=== PATIENT | female | born 1975 ===

== ENCOUNTER 2018-02-01 19:39 | Inpatient (IN) | payer OTHER, SELFPAY ==
--- NOTE | 2018-02-01 20:38 | RAD ---
ONE VIEW CHEST: 02/01/18 HISTORY: Syncope. COMPARISON: None. FINDINGS: Normal cardiac silhouette. The pulmonary vessels and hilum are normal. No consolidation or mass. No p neumothorax or osseous abnormality. IMPRESSION: No acute cardiopulmonary process. POS: [facility]
[2018-02-01 21:11] LABS: #Eosinphils 0.1 thou/uL (0.0-0.7); #Lymphocytes 1.2 thou/uL (1.20-3.40); #Monocytes 0.8 thou/uL (0.11-0.59); #Neutrophils 6.4 thou/uL (1.40-6.50); %Basophils 0.1 % (0.0-1.0); %Eosinophils 1.4 % (0.0-10.0); %Monocytes 9.5 % (0.0-10.0); %Neutrophils 75.1 % (42.0-75.0); Hemoglobin 10.1 g/dL (12.0-16.0); Mean Corpuscular HGB CONC 33.1 g/dL (32.0-36.0); Mean Corpuscular Hemoglobin 29.2 pg (27.0-31.0); Mean Corpuscular Volume 88.2 fL (78.0-98.0); Mean Platelet Volume 8.5 fL (7.4-10.4); Platelet Count 164 thou/uL (130-400); RBC Distribution Width 19.9 % (11.5-14.5); Red Blood Cell (RBC) Count 3.47 mill/uL (4.20-5.40); White Blood Cell (WBC) Count 8.5 thou/uL (4.8-10.8)
[2018-02-01 21:12] LABS: ALT (SGPT) 28 U/L (8-55); AST (SGOT) 30 U/L (5-34); Albumin 2.7 g/dL (3.5-5.0); Alkaline Phosphatase 79 U/L (40-150); Anion Gap 15 mmol/L (10-20); BUN (Urea Nitrogen) 11 mg/dL (7.0-18.7); Bilirubin, Total 1.2 mg/dL (0.2-1.2); CK (CPK) 44 U/L (29-168); Calc. Creatinine Clearance 0 mL/min (70-130); Calcium 7.8 mg/dL (7.8-10.44); Carbon Dioxide 19 mmol/L (22-29); Chloride 109 mmol/L (98-107); Estimated GFR-MDRD 79; Globulin 2.1 g/dL (2.4-3.5); Glucose 145 mg/dL (70-105); Potassium 3.5 mmol/L (3.5-5.1); Protein, Total 4.8 g/dL (6.0-8.3); Sodium 139 mmol/L (136-145)
[2018-02-01 21:16] LABS: CKMB 1.9 ng/mL (0-6.6); Troponin I 0.019 ng/mL (< 0.028)
[2018-02-01] MEDS ORDERED: Ondansetron ODT 8 MG TAB ONE (21:19)
[2018-02-01] MEDS ORDERED: Hydrocortisone Sod Succ/PF 100 mg/2 ml Vial ONE (23:30)
[2018-02-01] MEDS ORDERED: Norepinephrine 8 MG/0.9% NS 250 ML ONE (23:59)
[2018-02-02 00:30] LABS: INR-International Normal Ratio 1.7; PTT 30.5 SEC (22.9-36.1); Prothrombin Time 20.3 SEC (12.0-14.7)
[2018-02-02] MEDS ORDERED: Piperacillin/Tazobactam 4.5 GM VIAL ONE (00:52)
[2018-02-02] MEDS ORDERED: Albumin 25% 25 GM/100 ML BOT IVPB ONE (01:15)
[2018-02-02] MEDS ORDERED: Sodium Chloride 0.9% 1,000 ML IV SCH (03:30)
[2018-02-02] MEDS ORDERED: Dextrose 5 % And 0.9 % NaCl 1,000 ML IV SCH (04:45)
[2018-02-02 05:26] VITALS: BMI 24.3
[2018-02-02] MEDS ORDERED: Norepinephrine 8 MG/250 ML BAG IVPB PRN (05:35)
[2018-02-02] MEDS: Dextrose 5 % And 0.9 % NaCl 1,000 ML IV SCH ×2 (05:43→08:49)
[2018-02-02] MEDS ORDERED: MEROPENEM 1 GM/50 ML 1 GM in Premix Bag 1 BAG IVPB SCH (06:00)
[2018-02-02] MEDS ORDERED: Albumin 25% 25 GM/100 ML BOT IVPB SCH ×2 (06:00→09:07)
[2018-02-02] MEDS ORDERED: CCU Electrolyte Replacement 1 EACH IVPB ONE (06:24)
[2018-02-02] MEDS ORDERED: Lacri-Lube Opth Oint 3.5 GM TUBE EA EYE PRN (06:24)
[2018-02-02] MEDS ORDERED: Milk Of Magnesia 30 ML UDCUP PO PRN (06:25)
[2018-02-02] MEDS ORDERED: Mag-Al 1200 mg/1200 mg/30 ML UDCUP PO PRN (06:25)
[2018-02-02] MEDS ORDERED: Ondansetron HCl/PF 4 MG/2 ML Vial IVP PRN (06:25)
[2018-02-02] MEDS ORDERED: Calcium Carbonate 500 MG ChewTAB PO PRN (06:25)
[2018-02-02] MEDS ORDERED: Ondansetron ODT 4 MG TAB PO PRN (06:25)
[2018-02-02] MEDS ORDERED: Meropenem 1 GM in Sodium Chloride 0.9% 100 ML IVPB SCH (06:30)
[2018-02-02] MEDS ORDERED: Magnesium 2 GM/NS 0.9% 100 ML 2 GM in Premix Bag 1 BAG IVPB PRN (06:34)
[2018-02-02] MEDS ORDERED: Potassium Phosphate 9 MMOL in Sodium Chloride 0.9% 100 ML IVPB PRN (06:34)
[2018-02-02] MEDS ORDERED: Potassium Phosphate 12 MMOL in Sodium Chloride 0.9% 250 ML 250 ML IV PRN (06:34)
[2018-02-02] MEDS ORDERED: Magnesium Oxide 400 MG TAB PO PRN ×2 (06:34)
[2018-02-02] MEDS ORDERED: Potassium Chloride 40 MEQ in Sodium Chloride 0.9% 250 ML 250 ML IVPB PRN (06:34)
[2018-02-02] MEDS ORDERED: Potassium Chloride 20 MEQ TAB PO PRN (06:34)
[2018-02-02] MEDS ORDERED: Potassium Chloride 40 MEQ in Premix Bag 1 BAG IVPB PRN (06:34)
[2018-02-02] MEDS ORDERED: Potassium Phosphate 15 MMOL in Sodium Chloride 0.9% 250 ML 250 ML IV PRN (06:34)
[2018-02-02 08:40] VITALS: TEMP 98.5
[2018-02-02] MEDS ORDERED: Pantoprazole 40 MG VIAL IVP SCH (09:00)
--- NOTE | 2018-02-02 09:01 | HP ---
DATE OF ADMISSION: 02/02/2018 PRIMARY CARE PHYSICIAN: Dr. Gonsalo mills. 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 CHIEF COMPLAINT: Syncopal episode. 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 She was sitting in the car at that time. She was short of breath and diaphoretic. No fall injury, chest pain, palpitations or focal neurolo gic deficit reported. She denies any hematemesis, melena or hematochezia. She has history of esopha geal varices requiring banding. She gets surveillance EGD twice a year. She had one episode of vomi ting and several episodes of nonbloody diarrhea earlier today. In the emergency room, her initial vital signs showed temperature 98, respiration 18, pulse rate of 7 5 with blood pressure of 65/40. Her O2 saturation was 100% on room air. EKG showed sinus rhythm. T he patient declined a central line. She was started on Levophed. Her H&H in the emergency room was 10.1/30.6. Due to elevated D-dimer, a CT angiogram of the chest was ordered around midnight. PAST MEDICAL HISTORY: 1. Autoimmune cirrhosis. 2. Esophageal varices status post banding. PAST SURGICAL HISTORY: 1. . 2. EGD with esophageal banding. ALLERGIES: No known drug allergies. CURRENT HOME MEDICATIONS: Aldactone, Protonix, and Ursodiol. The exact dosages to be confirmed. FAMILY HISTORY: Negative for heart disease. SOCIAL HISTORY: Patient drinks socially. No smoking or drug use. REVIEW OF SYSTEMS: The following complete review of systems was negative, unless otherwise mentioned in the HPI or below: Constitutional: Weight loss or gain, ability to conduct usual activities. Skin: Rash, itching. Eyes: Double vision, pain. ENT/Mouth: Nose bleeding, neck stiffness, pain, tenderness. Cardiovascular: Palpitations, dyspnea on exertion, orthopnea. Respiratory: Shortness of breath, wheezing, cough, hemoptysis, fever or night sweats. Gastrointestinal: Poor appetite, abdominal pain, heartburn, nausea, vomiting, constipation, or diarr hea. Genitourinary: Urgency, frequency, dysuria, nocturia. Musculoskeletal: Pain, swelling. Neurologic/Psychiatric: Anxiety, depression. Allergy/Immunologic: Skin rash, bleeding tendency. PHYSICAL EXAMINATION: VITAL SIGNS: As discussed above. GENERAL: A 42-year-old female, pale appearing, no apparent distress. Denies significant abdominal d iscomfort. HEENT: Head is atraumatic, normocephalic. Sclerae are anicteric. Dry mucous membranes. No oral le jakub. NECK: Supple, no JVD appreciated. No carotid bruit. LUNGS: Showed diminished air entry at bilateral bases. No wheezing, rales or rhonchi. Lungs were s ymmetrical. HEART: S1, S2 present. Regular rate and rhythm. No rubs or gallops appreciated. ABDOMEN: Diffuse tender mainly in the left upper and left lower quadrant. No significant rebound or guarding appreciated. Hypoactive bowel sounds present. EXTREMITIES: Trace edema in bilateral lower extremities. No calf tenderness. SKIN: Warm and dry. LYMPH NODES: No palpable lymph nodes in the neck. PERIPHERAL VASCULAR: Radial pulses palpable bilaterally. MUSCULOSKELETAL: No joint swelling or tenderness. LABORATORY DATA AND X-RAY FINDINGS: CBC showed WBC 8.5 with hemoglobin 10.1, hematocrit 30.6, platel et 164. INR 1.7, PT 20.3. D-dimer 7.71. Chemistries showed sodium 139, potassium 3.5, chloride 109 , bicarbonate 19, BUN 11, creatinine 0.79. Cortisol level was drawn after the stress dose steroid. Troponin was negative. Stool for occult blood was negative. Chest x-ray by my review as discussed jay land. I received a call from [facility] around 3:00 a.m. that the patient probably has intrap eritoneal blood. A CT of the abdomen with IV contrast was recommended by the radiologist. This has been ordered and pending at this time. IMPRESSION: 1. Syncope secondary to hypotension. 2. Hypovolemic shock, on Levophed. Please note that patient declined central line. She understands the risks not limited to limb ischemia while on pressors. 3. Suspected intraperitoneal bleed. CT abdomen pending at this time. 4. Autoimmune cirrhosis. 5. Esophageal varices status post banding in the past. 6. Dehydration. 7. Moderate protein calorie malnutrition. 8. Elevated D-dimer. Pulmonary embolism has been ruled out. 9. Coagulopathy, probably secondary to liver disease. PLAN: The patient will be monitored in the Intensive Care Unit setting. We will continue aggressive IV hydration. We will continue albumin. We will continue low dose Levophed through peripheral IV s joanne the patient is refusing central line. We will try to get a PICC line in a.m. Critical Care con sulzaira. Empiric antibiotics. A repeat hemoglobin was ordered after the CT chest; however, the patient declined. Plan of care was discussed with the patient and the in detail. They stated under standing. Condition of the patient critical. Please note that patient has been refusing blood draws as well a central line. She understands the risk not limited to life-threatening complications incl uding . I emphasized the importance of central line and blood draw; however, the patient is sti ll adamant and is refusing blood draws.
--- NOTE | 2018-02-02 09:01 | HP ---
HISTORY OF PRESENT ILLNESS: Ms. Tomeka Adams is a 42-year-old female with autoimmune hepatitis, fo llowed by Dr. Branham in [place], , who has a long history of varices, portal hypertension. She has a history of ascites, coagulopathy. She undergoes twice yearly endoscopies with variceal b anding. Eleven years ago, she had a syncopal episode with massive blood loss requiring variceal band ing. Patient reports because of a syncopal episode, she was seen in the emergency room. At midnight , she had a CT angio chest and a chest x-ray that was unremarkable. During the CT angio chest, there was fluid in abdominal cavity. She underwent abdominal pelvic CAT scan revealing free intraabdomina l fluid suggested perisplenic blood. This is probably blood mixed with ascites. The patient refuses central line. She had hemoglobin in the emergency room at 8:47 is currently 10.1. She was placed i n ICU and placed on Levophed. She has refused a central line. She has a right antecubital IV. I wa s called at 6:00 this morning by Hospitalist noting the CAT scan of the abdomen and pelvis reading of intra-abdominal fluid, possible blood. Patient's blood pressure currently is 110/70 on Levophed, IV . Subsequent hemoglobin has not been checked. Platelet count is 164,000. PT 20, INR 1.7. Basic me tabolic profile and liver function tests are normal. ALLERGIES: None. TOBACCO: None. ALCOHOL: Infrequently. MEDICATIONS: Diuretic at home, not listed on her MAR. PAST SURGICAL HISTORY: . Twice yearly endoscopies with variceal banding. The patient was hospitalized 11 years ago when she had a syncopal episode with massive blood loss requiring variceal banding. She has not required paracentesis. The patient reports having a bad experience with a ara roenterologist locally and therefore followed by gastrologist in [place]. REVIEW OF SYSTEMS: Noncontributory. SOCIAL HISTORY: Patient works in the computer. PHYSICAL EXAMINATION: VITAL SIGNS: Blood pressure 111/70. LUNGS: Clear to auscultation. CARDIAC: Regular rate and rhythm without murmur or gallop. ABDOMEN: Slightly distended, diffusely tender without peritoneal signs. LABORATORY DATA: As noted above. ASSESSMENT AND PLAN: Autoimmune cirrhosis. She probably did experience a pneumoperitoneum mixed wit h a baseline ascites. Surgical intervention is not warranted at this point. During this encounter, the patient's is at the bedside continuously interrupting and asking questions. He is insist ing that I call her doctor in [place]. I have made an effort to do so and the answering service now has my number and I am awaiting them to call back. Currently, there is no perforated viscus evident and there may be spontaneous intra-abdominal bleeding. We would advise Gastroenterology consult. I have advised a central line, but the patient and the have refused. At this point, we will fo llow her clinically, follow her hemoglobins.
--- NOTE | 2018-02-02 09:48 | CT ---
PRELIMINARY REPORT/[facility]/EMERGENTY AFTER-HOURS PROCEDURE Addendum created by Quang Alcocer MD on 02/02/2018 3:46 AM Central Time ([place] & [place]) THIS REPORT CONT AINS FINDINGS THAT MAY BE CRITICAL TO PATIENT CARE. The findings were verbally communicated via telep librado conference with Dr. Ray at 3:44 AM CDT on 02/02/2018. The findings were acknowledged and unders tood. Initial Report created on 02/02/2018 3:29 AM Central Time ([place] & [place]) CT Angiography Chest With Intravenous Contrast CLINICAL HISTORY: 42 years old, female; Signs and symptoms; Dyspnea; Patient HX: Er 1; Elevated d-dimer; F44 reports to ed via ems C/O dehydration. Ems reports patient was found diaphoretic and cool. Pt family reports pa lavonne went unconscious in the car. Pt reports wifes lips were pale. Pt is currently undergoin g abx treatment for pneumonia. Pt HX of anemia and is receiving transfusion in [address] ill has a cough. Pt reports recent onset of nausea TECHNIQUE: Axial computed tomographic angiography images of the chest with intravenous contrast using pulmonary embolism protocol. MIP reconstructed images were created and reviewed. Coronal reformatted images were created and reviewed. COMPARISON: No relevant prior studies available. FINDINGS: Pulmonary arteries: Some left basilar motion. No pulmonary embolus identified. Aorta: No acute findings. No thoracic aortic aneurysm. Lungs: Minimal dependent atelectasis. Minimal right lower lobe bronchiolar mucous plugging. 4 mm grou ndglass density in the right apex. No mass or consolidation. Pleural space: No significant effusion. No pneumothorax. Heart: Small anterior pericardial effusion. Bones/joints: No acute fracture. No dislocation. Soft tissues: Unremarkable. Lymph nodes: Unremarkable. No enlarged lymph nodes. Upper abdomen: Evaluation limited by early phase enhancement. Distended gallbladder. Nodular liver ma rgins. Perisplenic collaterals. Spleen appears enlarged. Moderate of intermediate density fluid in th e upper abdomen (around 30 HU). Hyperdense fluid along the lateral splenic margin. Poorly defined pancreas and with ill-defined surrounding fluid and 6 cm collection of intermediate de nsity fluid around the neck, possibly above it although the pancreas is incompletely visualized IMPRESSION: 1. No evidence of pulmonary embolus. 2. Moderate amount of intermediate density fluid in the upper abdomen suggestive of blood products wi th hyperdensity around the spleen suggesting splenic injury as a source. Additionally, the pancreas i s ill-defined and pancreatic injury or other abnormality cannot be excluded. 3. Findings suggestive of chronic liver disease. Thank you for allowing us to participate in the care of your patient. Dictated and Authenticated by: Quang Alcocer MD 02/02/2018 3:29 AM Central Time ([place] & [place]) FINAL REPORT EMERGENT AFTER HOURS CT ANGIOGRAM OF THORAX WITH IV CONTRAST AND 3D RECONSTRUCTIONS: DATE: 02/02/18. HISTORY: The patient was found by EMS to be diaphoretic and cool. The patient's family reports the patient be came unconscious in car. The patient is undergoing treatment for pneumonia currently. IMPRESSION: 1. No CT evidence of a pulmonary embolus. 2. Thoracic aorta is normal in caliber without evidence of an aortic dissection. 3. Approximately 5 mm nodular density within the right lung apex. 4. Dependent atelectasis. 5. Small pericardial effusion. 6. Nodular contour of the liver suggesting cirrhosis. 7. Intraperitoneal free fluid in the visualized upper abdomen. 8. Increased density fluid adjacent to the visualized upper spleen as well as pancreas. Findings co uld be related to blood products. However, the parenchymal organs are not well evaluated on this art erial phase of imaging exam. 9. Enlargement of the spleen which is incompletely imaged on this exam. 10. Gallbladder wall edema. 11. Please see CT abdomen and pelvis for further details dictated on a separate report. 12. Findings are in agreement with the preliminary report by [facility]. POS: [facility]
--- NOTE | 2018-02-02 09:50 | CT ---
PRELIMINARY REPORT/[facility]/EMERGENTY AFTER-HOURS PROCEDURE Addendum created by Quang Alcocer MD on 02/02/2018 5:59 AM Central Time ([place] & [place]) There are also s everal splenic artery aneurysms distally measuring up to 3.5 cm (coronal 87-81). No contrast extravas ation identified in the area. THIS REPORT CONTAINS FINDINGS THAT MAY BE CRITICAL TO PATIENT CARE. The findings were verbally commun icated via telephone conference with Murali Ray at 5:52 AM CDT on 02/02/2018. The findings were ackn owledged and understood. Initial Report created on 02/02/2018 5:46 AM Central Time ([place] & [place]) CT Abdomen and Pelvis With Intravenous Contrast CLINICAL HISTORY: 42 years old, female; Abnormal findings; Abnormal radiologic finding of the abdomen; Radiologic exam and body structure: Abnormal upper abdomen seen on cta chest; Patient HX: Suspected intra abdominal b leeding around spleen TECHNIQUE: Axial computed tomography images of the abdomen and pelvis with intravenous contrast. Coronal reformatted images were created and reviewed. COMPARISON: No relevant prior studies available. FINDINGS: Lung bases: No acute findings. ABDOMEN: Liver: Cirrhotic liver morphology. Otherwise unremarkable. Gallbladder and bile ducts: Distended gallbladder with nonspecific edematous appearing wall. Pancreas: Unremarkable other than being partially surrounded by hematoma more prominent and heterogen eous anteriorly which appears to exert some mass effect. Spleen: Mildly enlarged. Perisplenic portosystemic collaterals. No obvious focal defect identified. Adrenals: Normal. Kidneys and ureters: Normal. Stomach and bowel: Unremarkable. No obstruction. PELVIS: Appendix: No findings to suggest acute appendicitis. Bladder: Dense excreted contrast in the urinary bladder. Reproductive: Neither ovary delineated from the pelvic blood products. ABDOMEN and PELVIS: Intraperitoneal space: Large amount of dense fluid within the abdomen consistent with blood with smal l areas of layering hyperdensity, hyperdense clot along the lateral margin the spleen and with larger more dense clot along the left paracolic gutter and in the pelvis anteriorly and on the left. No con trast extravasation identified. No free air. Bones/joints: Unremarkable. No acute fracture. Soft tissues: Unremarkable. Vasculature: See above. Lymph nodes: Unremarkable. No enlarged lymph nodes. IMPRESSION: 1. Large amount of hemoperitoneum without definite source. There is some hyperdense clot around the s pleen and along the left paracolic gutter without obvious splenic defect. There is also hyperdense cl ot in the pelvis anteriorly and below the left adnexa. The left ovary is not delineated, although findings would be unusual for a ruptured cyst 2. Nonocclusive thrombus in the portal confluence. Thank you for allowing us to participate in the care of your patient. Dictated and Authenticated by: Quang Alcocer MD 02/02/2018 5:46 AM Central Time ([place] & [place]) FINAL REPORT EMERGENT AFTER HOURS CT OF THE ABDOMEN AND PELVIS WITH IV CONTRAST: IMPRESSION: Agree with the preliminary interpretation given by [facility]. A large amount of hemoperitoneum, the etiolo gy of which is not definitely certain on the basis of this study. Changes of cirrhosis and portal hy pertension are noted with splenomegaly and prominent splenic varices. Evaluation of the splenic iain ry is somewhat limited due to the tortuosity of the splenic artery and the splenic varices present. Evidence for multiple splenic artery aneurysms which are primarily saccular. 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 The splenic artery is initially tortuou s first coursing right of midline and then left of midline. Probable splenic artery aneurysm distall y near the splenic hilum measures up to 3.5 cm. Correlation with dedicated CT angiogram or conventio nal angiogram is recommended. Vascular surgical consultation is recommended. No definite active ext ravasation is identified. Findings communicated to the patient's nurse 8:45 am 02/02/2018.
--- NOTE | 2018-02-02 10:28 | CON ---
DATE OF CONSULTATION: 02/02/2018 HISTORY: She is a 42-year-old female from [place]. is at the bedside. She presented last night with a syncopal episode. Her states that she sees Dr. Chang. She s ees a Dr. Branham who appears to be a gastroenteritis out of [place]. Twelve days ago she was diagnose d to have autoimmune cirrhosis. She had a GI bleed at that time, underwent endoscopy. According to the , she goes from time to time for routine endoscopy to control the bleeding. She has been stable for all these years. She was in her car yesterday when she had a blackout spell. She was pale when she arrived. A CAT scan of the abdomen on an emergency basis showed a large amount of hemoperitoneum without any definite source. There was a nonocclusive thrombus in the portal conf luence. Surgery was consulted; however, the patient wants to be life flighted to [place], which is b [facility] arranged. She is presently on Levophed with a blood pressure of 119/57, pulse 97, sats 100%, re spiration 20. Nonsmoker. Occasional drinker. states that about several weeks ago, a diagnosis of bronchit is and pneumonia was made by her primary care physician and she was started on Levaquin. PAST MEDICAL HISTORY: 1. Recent pneumonia, treated with Levaquin. 2. History of autoimmune cirrhosis, end-stage with previous variceal bleed. 3. Recent syncopal episode secondary to retroperitoneal hemorrhage. PAST SURGICAL HISTORY: . CHRONIC MEDICATION FROM HOME: Unknown at this time, but apparently she is taking spironolactone 50 a day, Ursodiol 500 a day, Protonix 40 a day. ALLERGIES: None. REVIEW OF SYSTEMS: Unremarkable. PHYSICAL EXAMINATION: VITAL SIGNS: Once again blood pressure 190/57, sats 100% on supplemental oxygen, respirations 24. GENERAL: She has pain, but no acute distress. CHEST: Reveals no crackles or wheezing. CARDIAC: Normal S1-S2. No gallops. ABDOMEN: Distended, soft. LABORATORY AND X-RAY FINDINGS: INR is 1.7. D-dimer 7.7, glucose 118. Serum protein 4.8, albumin is 2.7, H&H 10 and 30, platelet count is 164. White count 8.5. Her initial chest x-ray was otherwise unremarkable. CT chest, I do not see any pneumonia or any evid ence of obvious blood clots. IMPRESSION: 1. Massive retroperitoneal bleed, etiology unclear. 2. Hypertension on Levophed. Initiate albumin 3. Autoimmune cirrhosis. PLAN: I agree with Protonix. I agree with empiric antibiotics. We will transfer to [facility] in blood pressure systolic at least 100. Additional albumin was given. Forty-five minute critical care time.
--- NOTE | 2018-02-02 12:42 | DIS ---
DATE OF ADMISSION: 02/02/2018 DATE OF DISCHARGE: 02/02/2018 PRIMARY CARE PHYSICIAN: Dr. Gonsalo Chang. DISCHARGE DIAGNOSES: 1. Hemorrhagic shock. 2. Intracranial hemorrhage. 3. Coagulopathy secondary to cirrhosis. 4. Cirrhosis secondary to autoimmune hepatitis. CONSULTATIONS: 1. Pulmonary Critical Care, Dr. Cosme Valle. 2. General surgery, Dr. Pato Thomas. PROCEDURES: None. HISTORY AND PHYSICAL AND HOSPITAL COURSE: Ms. Adams is a 42-year-old female with the above histo ry who presented to the emergency department after a syncopal episode in her car. Workup showed intr aperitoneal bleed and she was admitted to the ICU for hemorrhagic shock. She refused central line pl acement and any surgical intervention and requested transfer to [facility] were begun. She was seen by a and subsequently agreed to central line placement, but was otherwise stable and was ready for transfer, so was sent to [facility]. DISCHARGE CONDITION: Critically ill, but stable. DISCHARGE DISPOSITION: The patient being transferred to [facility] in [place] via helicopter. DISCHARGE DIET: N.p.o. DISCHARGE ACTIVITY: As tolerated. DISCHARGE MEDICATIONS: To continue current including Levophed.
[2018-02-03] MEDS ORDERED: Prevnar 13-Val Conj/PF 0.5 ML SYRINGE IM ONE (09:00)
--- NOTE | 2018-02-03 11:57 | EKG ---
Test Reason : Blood Pressure : / mmHG Vent. Rate : 063 BPM Atrial Rate : 063 BPM P-R Int : 124 ms QRS Dur : 090 ms QT Int : 420 ms P-R-T Axes : 041 020 057 degrees QTc Int : 429 ms Normal sinus rhythm with sinus arrhythmia Normal ECG Confirmed by BRAD BAILON ([id number]), non linear editor JUAN RAMIRES ([id number]) on 02/03/2018 11:57:40 AM Referred By: Confirmed By:BRAD BAILON
== END 2018-02-02 11:20 | disposition short-term general hospital (02) | DRG 393 ==
LOC: ERS 19:39 → CCU 02-02 03:27
PROVIDERS: ADMIT Internal Medicine; ATTEND Internal Medicine
DX: K66.1 Hemoperitoneum (principal); R57.8 Other shock; R57.1 Hypovolemic shock; D68.4 Acquired coagulation factor deficiency; I62.9 Nontraumatic intracranial hemorrhage, unspecified; E44.0 Moderate protein-calorie malnutrition; R18.8 Other ascites; K74.60 Unspecified cirrhosis of liver; K75.4 Autoimmune hepatitis; Z68.24 Body mass index [BMI] 24.0-24.9, adult
CPT/HCPCS: 36415; 36416; 71045; 71275; 74177; 80053; 82274; 82533; 82553; 83630; 84484; 85025; 85379; 85610; 85730; 87040; 87045; 87046; 87324; 87449; 87899; 93005; 96361; 96365; 96366; 96367; 96368; 96375; A4216; C9113; J1720; J2185; J2543; J3370; P9047